=== PATIENT | female | born 1995 | race Caucasian/White ===

== ENCOUNTER 2019-05-11 16:34 | Emergency (ER) | payer OTHER ==
[~2019-05-11] VITALS: Ht 152.4 cm; Wt 61.2 kg
[2019-05-11] MEDS ORDERED: NORCO 5-325 TA1 EAC1 PO (17:01)
[2019-05-11] MEDS ORDERED: IBUPROFEN 800800 M1 PO (17:01)
[2019-05-11 17:09] VITALS: BP 132/66
== END 2019-05-11 17:10 | disposition home or self-care (01) ==
LOC: M.ERS 16:34
DX: T23.252A Burn of second degree of left palm, initial encounter (principal); X15.0XXA Contact with hot stove (kitchen), initial encounter; Y92.89 Other specified places as the place of occurrence of the external cause; Y93.89 Activity, other specified; Y99.8 Other external cause status